=== PATIENT | female | born 1945 | race Caucasian/White ===

== ENCOUNTER 2019-06-20 19:38 | Emergency (ER) | payer MEDICARE, OTHER ==
[2019-06-20] MEDS ORDERED: Midazolam 1 MG/ML 2 ML SDV IVPUSH ONE (19:54)
[2019-06-20] MEDS ORDERED: fentaNYL 100 MCG/2 ML SDV IVPUSH ONE (19:54)
--- NOTE | 2019-06-20 19:54 | EDM.PDOC ---
ED HPI GENERAL MEDICAL PROBLEM - General Chief Complaint: Upper Extremity Injury/Pain Stated Complaint: [facility]ENT AMB Time Seen by Provider: 06/20/19 19:40 Source of Information: Reports: Patient, EMS History Limitations: Reports: No Limitations - History of Present Illness INITIAL COMMENTS - FREE TEXT/NARRATIVE: The patient presents by [facility] with intercept from [facility] for a left shoulder dislocation. The patient was going into the kitchen to get her son some dinner and a wheel on her walker broke and she fell along the counter and her left arm is stuck up above her head. She did not hit her head or hurt her neck. She has no headache, neck pain, chest pain, abdominal pain, nausea, vomiting, hip or leg pain. This has never happened to her before. Onset: Sudden Duration: Minutes: Location: Reports: Upper Extremity, Left (Shoulder dislocation) Quality: Reports: Sharp Severity: Severe Improves with: Reports: Immobilization Worsens with: Reports: Movement Context: Reports: Trauma (fall) Associated Symptoms: Reports: No Other Symptoms Treatments TRANSPORTATION AGENT: Reports: IV/IO, Other (see below) Other Treatments TRANSPORTATION AGENT: zofran, dialudid Left Shoulder Pain Score (Numeric/FACES): 10 - Related Data Allergies Allergy/AdvReac Type Severity Reaction Status Date / Time morphine Allergy Agitation Verified 06/20/19 19:45 Penicillins Allergy Hives Verified 06/20/19 19:45 soy Allergy Hives Verified 06/20/19 19:45 Yeast Allergy Hives Verified 06/20/19 19:45 chlorine. Allergy Hives Uncoded 06/20/19 19:45 Home Meds: Home Meds Acetaminophen with Codeine [Tylenol with Codeine #3 Tablet] 1 each PO Q6H PRN # 20 tablet 06/20/19 [Rx] Allopurinol [Zyloprim] 100 mg PO TID 06/20/19 [History] Cholecalciferol (Vitamin D3) [Vitamin D3] 5,000 unit PO DAILY 06/20/19 [History] Famotidine [Pepcid] 10 mg PO DAILY 06/20/19 [History] Fluconazole [Diflucan] 150 mg PO Q48H 06/20/19 [History] Hydroxychloroquine [Plaquenil] 200 mg PO BID 06/20/19 [History] Levothyroxine Sodium [Synthroid] 137 mcg PO ACBREAKFAST 06/20/19 [History] Losartan [Cozaar] 50 mg PO DAILY 06/20/19 [History] metFORMIN [Glucophage XR] 1,000 mg PO DAILY 06/20/19 [History] Past Medical History Cardiovascular History: Reports: Hypertension Musculoskeletal History: Reports: Gout Endocrine/Metabolic History: Reports: Hypothyroidism, Obesity/BMI 30+ - Past Surgical History GI Surgical History: Reports: Other (See Below) Other GI Surgeries/Procedures: splenectomy Social & Family History - Tobacco Use Smoking Status *Q: Never Smoker - Caffeine Use Caffeine Use: Reports: None - Recreational Drug Use Recreational Drug Use: No Review of Systems - Review of Systems Review Of Systems: See Below Constitutional: Reports: No Symptoms Eyes: Reports: No Symptoms Ears: Reports: No Symptoms Nose: Reports: No Symptoms Mouth/Throat: Reports: No Symptoms Respiratory: Reports: No Symptoms Cardiovascular: Reports: No Symptoms GI/Abdominal: Reports: No Symptoms Musculoskeletal: Reports: Shoulder Pain (Left) ED EXAM, GENERAL - Physical Exam Exam: See Below Exam Limited By: No Limitations General Appearance: Alert, No Apparent Distress Ears: Normal External Exam Nose: Normal Inspection Head: Atraumatic, Normocephalic Neck: Normal Inspection Respiratory/Chest: No Respiratory Distress, Lungs Clear, Normal Breath Sounds Cardiovascular: Regular Rate, Rhythm, No Edema, No Murmur GI/Abdominal: Soft, Non-Tender, No Organomegaly, No Mass Extremities: Other (Left arm is abducted and over her head. She has good sensation and pulses distally.) ED TRAUMA EXTREMITY PROCEDURES - Joint Reduction Left Shoulder Sedation: Conscious Sedation Pre-Procedure NV Status: Normal Post-Procedure NV Status: Normal Technique: Traction/Counter Traction Number of Attempts: 2 Post-Reduction Imaging: Completely Reduced, No Fracture Seen Joint Reduction Complications: No Course - Vital Signs Last Recorded V/S: Last Vital Signs Temp 98.7 F 06/20/19 19:40 Pulse 103 H 06/20/19 19:40 Resp 19 06/20/19 19:40 BP 146/63 H 06/20/19 19:40 Pulse Ox 91 L 06/20/19 19:40 - Orders/Labs/Meds Orders: Active Orders 24 hr Category Date Time Status Shoulder 1V Lt [CR] Stat Exams 06/20/19 20:29 Taken Shoulder Comp Lt [CR] Stat Exams 06/20/19 21:15 Ordered Meds: Medications Discontinued Medications Generic Name Dose Route Start Last Admin Trade Name Melania PRN Reason Stop Dose Admin Fentanyl 100 mcg 06/20/19 19:54 Sublimaze IVPUSH 06/20/19 19:55 ONETIME ONE Fentanyl Confirm 06/20/19 19:55 Sublimaze Administered 06/20/19 19:56 Dose 100 mcg .ROUTE .STK-MED ONE Midazolam HCl 2 mg 06/20/19 19:54 Versed 1 Mg/Ml IVPUSH 06/20/19 19:55 ONETIME ONE Midazolam HCl Confirm 06/20/19 19:55 Versed 1 Mg/Ml Administered 06/20/19 19:56 Dose 6 mg .ROUTE .STK-MED ONE Propofol 120 mg 06/20/19 20:37 Diprivan 20 Ml IVPUSH 06/20/19 20:38 ONETIME ONE - Re-Assessments/Exams Free Text/Narrative Re-Assessment/Exam: 06/20/19 20:04 I ordered an IV saline lock and I ordered versed and fentanyl. 06/20/19 21:19 The the patient was given a total of 3mgs of versed and 100mcg of fentanyl. The shoulder did move but x-ray showed it was still reduced. I then used 140mg of propofol and my [employer] MANAGER Karol was able to reduce her shoulder without difficulty. There were no complications. X-ray did confirm reduction. Departure - Departure Time of Disposition: 21:30 Disposition: Home, Self-Care 01 Condition: Good Clinical Impression: Inferior dislocation of left shoulder Qualifiers: Encounter type: initial encounter Qualified Code(s): S43.035A - Inferior dislocation of left humerus, initial encounter - Discharge Information *PRESCRIPTION DRUG MONITORING PROGRAM REVIEWED*: Not Applicable *COPY OF PRESCRIPTION DRUG MONITORING REPORT IN PATIENT [place]: Not Applicable Prescriptions: Acetaminophen with Codeine [Tylenol with Codeine #3 Tablet] 1 each PO Q6H PRN # 20 tablet PRN Reason: Pain Referrals: PCP,Not In Area [Primary Care Provider] - Clayton Hills MD [Physician] - 1 Week Forms: ED Department Discharge Additional Instructions: Ice your shoulder for 15 minutes 3 times per day for 2 days. Wear the sling and swathe for the next couple of days. Take it off a couple times per day and move your shoulder to avoid getting frozen shoulder. Take tylenol as needed for pain. If that does not help, try the tylenol 3. Please return if you are worse. Sepsis Event Note - Evaluation Sepsis Screening Result: No Definite Risk - Focused Exam Vital Signs: Vital Signs Temp Pulse Resp BP Pulse Ox 06/20/19 19:40 98.7 F 103 H 19 146/63 H 91 L Date Exam was Performed: 06/20/19 Time Exam was Performed: 21:18 - My Orders Last 24 Hours: My Active Orders 06/20/19 20:29 Shoulder 1V Lt [CR] Stat 06/20/19 21:15 Shoulder Comp Lt [CR] Stat - Assessment/Plan Last 24 Hours: My Active Orders 06/20/19 20:29 Shoulder 1V Lt [CR] Stat 06/20/19 21:15 Shoulder Comp Lt [CR] Stat
[2019-06-20] MEDS ORDERED: Midazolam 1 MG/ML 2 ML SDV ONE (19:55)
[2019-06-20] MEDS ORDERED: fentaNYL 100 MCG/2 ML SDV ONE (19:55)
[2019-06-20] MEDS ORDERED: Propofol 200 MG/20 ML SDV IVPUSH ONE (20:37)
--- NOTE | 2019-06-20 20:42 | CR ---
Left shoulder: Supine portable view of the left shoulder was obtained. Dislocation is noted within the anterior and inferior direction within the left shoulder. No other acute finding is seen. Impression: 1. Dislocated left shoulder as noted above. Diagnostic code #3 Study was dictated in MDT
--- NOTE | 2019-06-21 07:29 | CR ---
Left shoulder: Single AP view of the left shoulder was obtained and supine projection. Comparison: Prior shoulder study performed earlier on the same day (7:38 PM). Dislocated shoulder remains inferiorly and anteriorly. No additional acute finding is seen. Impression: 1. Persistent dislocation. Diagnostic code #3 Study was dictated in MDT
--- NOTE | 2019-06-21 07:29 | CR ---
Left shoulder: 2 views of the left shoulder were obtained. Comparison: Previous shoulder study performed earlier on the same day (8:21 PM). Glenohumeral alignment is normal on current study with previous dislocation having been reduced. Impression: 1. Reduction of previous dislocation. Diagnostic code #1 Study was dictated in MDT
== END 2019-06-20 21:48 | disposition home or self-care (01) ==
LOC: JD.ED 19:38
DX: S43.035A Inferior dislocation of left humerus, initial encounter (principal); I10 Essential (primary) hypertension; E03.9 Hypothyroidism, unspecified; M10.9 Gout, unspecified; E66.9 Obesity, unspecified; Z68.42 Body mass index [BMI] 45.0-49.9, adult; Z91.018 Allergy to other foods; Z88.5 Allergy status to narcotic agent; Z88.0 Allergy status to penicillin; Z88.8 Allergy status to other drugs, medicaments and biological substances; Z79.899 Other long term (current) drug therapy; W19.XXXA Unspecified fall, initial encounter
CPT/HCPCS: 23650; 23655; 73020-26-LT; 73020-LT; 73030-26-LT; 73030-LT; 99152; 99153; 99283; 99283-25

== ENCOUNTER 2019-11-16 16:42 | Emergency (ER) | payer MEDICARE, OTHER ==
--- NOTE | 2019-11-16 17:18 | EDM.PDOC ---
ED HPI GENERAL MEDICAL PROBLEM - General Chief Complaint: Respiratory Problem Stated Complaint: COVID + Time Seen by Provider: 11/16/19 17:15 Source of Information: Reports: Patient, RN Notes Reviewed - History of Present Illness INITIAL COMMENTS - FREE TEXT/NARRATIVE: 74 yr female has been brought in by private vehicle with C/O hemoptysis that started today. She has been ill for 8 to 9 days, tested for covid 8 days ago and found to be covid positive. She has been coughing, has had fever and chills. Not aware of being short of breath but arrives to our ED with sats in the upper 70's room air. No chest or abd pain at time of eval. Has not been vomiting. Weak, dizzy when standing or walking. Hx of Htn, RA., moderate obesity and hypothyroidism. Generalized Pain Score (Numeric/FACES): 6 - Related Data Allergies Allergy/AdvReac Type Severity Reaction Status Date / Time morphine Allergy Agitation Verified 11/16/19 17:02 Penicillins Allergy Hives Verified 11/16/19 17:02 soy Allergy Hives Verified 11/16/19 17:02 Yeast Allergy Hives Verified 11/16/19 17:02 chlorine. Allergy Hives Uncoded 11/16/19 17:02 Home Meds: Home Meds Allopurinol [Zyloprim] 100 mg PO TID PRN 06/20/19 [History] Cholecalciferol (Vitamin D3) [Vitamin D3] 5,000 unit PO DAILY 06/20/19 [History] Levothyroxine Sodium [Synthroid] 137 mcg PO ACBREAKFAST 06/20/19 [History] Losartan [Cozaar] 50 mg PO DAILY 06/20/19 [History] Ascorbic Acid [Vitamin C] 1,000 mg PO BID 11/16/19 [History] Aspirin [Aspirin EC] 81 mg PO DAILY 11/16/19 [History] Ondansetron [Zofran ODT] 4 mg PO Q6HR PRN 11/16/19 [History] Zinc. 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, low platelets Gastrointestinal History: Reports: GERD, PUD Genitourinary History: Reports: UTI, Recurrent Musculoskeletal History: Reports: Gout Endocrine/Metabolic History: Reports: Hypothyroidism, Obesity/BMI 30+ Oncologic (Cancer) History: Reports: Non-Hodgkin's Lymphoma - Past Surgical History GI Surgical History: Reports: Other (See Below) Other GI Surgeries/Procedures: splenectomy Social & Family History - Tobacco Use Smoking Status *Q: Never Smoker - Caffeine Use Caffeine Use: Reports: Soda - Recreational Drug Use Recreational Drug Use: No ED ROS GENERAL - Review of Systems Review Of Systems: See Below Constitutional: Reports: Fever, Chills HEENT: Reports: Rhinitis. Denies: Throat Pain Respiratory: Reports: Cough, Sputum, Hemoptysis. Denies: Shortness of Breath Cardiovascular: Denies: Chest Pain GI/Abdominal: Reports: Decreased Appetite. Denies: Abdominal Pain, Vomiting Musculoskeletal: Reports: Other (generalized achiness) Skin: Denies: Rash Neurological: Reports: Dizziness. Denies: Trouble Speaking ED EXAM, GENERAL - Physical Exam Exam: See Below General Appearance: Alert, Mild Distress Ears: Normal External Exam Head: Atraumatic Neck: Supple, Other (no JVD) Respiratory/Chest: Respiratory Distress (very tachypnic on arrival to ED) Cardiovascular: Regular Rate, Rhythm Extremities: Normal Inspection. No: Leg Pain, Increased Warmth, Redness Neurological: Alert, Oriented, No Motor/Sensory Deficits Skin Exam: Warm, Dry, Normal Color EKG INTERPRETATION EKG Date: 11/16/19 Rhythm: NSR [place]: Normal P-Wave: Present QRS: Normal ST-T: Normal Course - Vital Signs Last Recorded V/S: Last Vital Signs Temp 98.5 F 11/16/19 20:05 Pulse 92 11/16/19 20:05 Resp 33 H 11/16/19 20:05 BP 101/83 11/16/19 20:05 Pulse Ox 90 L 11/16/19 20:05 - Orders/Labs/Meds Orders: Active Orders 24 hr Category Date Time Status Chest 1V Frontal [CR] Stat Exams 11/16/19 17:19 Taken Peripheral IV Insertion Adult [OM.PC] Stat Oth 11/16/19 17:20 Ordered Labs: Laboratory Tests 11/16/19 11/16/19 11/16/19 Range/Units 18:00 18:00 18:00 WBC 11.87 H (3.98-10.04) K/mm3 RBC 4.78 (3.98-5.22) M/mm3 Hgb 15.1 (11.2-15.7) gm/dl Hct 46.5 H (34.1-44.9) % MCV 97.3 H (79.4-94.8) fl MCH 31.6 (25.6-32.2) pg MCHC 32.5 (32.2-35.5) g/dl RDW Std Deviation 51.2 H (36.4-46.3) fL Plt Count 429 H (182-369) K/mm3 MPV 9.6 (9.4-12.3) fl Neut % (Auto) 80.1 H (34.0-71.1) % Lymph % (Auto) 13.4 L (19.3-51.7) % [place] % (Auto) 5.0 (4.7-12.5) % Eos % (Auto) 0.6 L (0.7-5.8) Baso % (Auto) 0.3 (0.1-1.2) % Neut # (Auto) 9.52 H (1.56-6.13) K/mm3 Lymph # (Auto) 1.59 (1.18-3.74) K/mm3 [place] # (Auto) 0.59 H (0.24-0.36) K/mm3 Eos # (Auto) 0.07 (0.04-0.36) K/mm3 Baso # (Auto) 0.03 (0.01-0.08) K/mm3 Manual Slide Review Abnormal smear D-Dimer, Quantitative (0.19-0.50) mg/L Puncture Site ABG pH (7.35-7.45) ABG pCO2 (35.0-45.0) mmHg ABG pO2 (80.0-100.0) mmHg ABG HCO3 (22.0-26.0) meq/L ABG O2 Saturation (96.0-97.0) % ABG Base Excess (-2-2.0) A-a Gradient mmHg O2 Delivery Device Oxygen Flow Rate FiO2 (21.00-100.00) % Blood Gas Comments Sodium 137 (136-145) mEq/L Potassium 4.6 (3.5-5.1) mEq/L Chloride 99 (98-107) mEq/L Carbon Dioxide 27 (21-32) mEq/L Anion Gap 15.6 H (5-15) BUN 21 H (7-18) mg/dL Creatinine 0.9 (0.55-1.02) mg/dL Est Cr Clr Drug Dosing 45.36 mL/min Estimated GFR (MDRD) > 60 (>60) mL/min BUN/Creatinine Ratio 23.3 H (14-18) Glucose 121 H (83-115) mg/dL Calcium 9.2 (8.5-10.1) mg/dL Ferritin (8-252) ng/ml Total Bilirubin 0.4 (0.2-1.0) mg/dL AST 33 (15-37) U/L ALT 22 (14-59) U/L Alkaline Phosphatase 75 (46-116) U/L Lactate Dehydrogenase 410 H (81-234) U/L Troponin I < 0.017 (0.00-0.056) ng/mL C-Reactive Protein 19.1 H* (<1.0) mg/dL Total Protein 7.4 (6.4-8.2) g/dl Albumin 2.3 L (3.4-5.0) g/dl Globulin 5.1 gm/dL Albumin/Globulin Ratio 0.5 L (1-2) 11/16/19 11/16/19 11/16/19 Range/Units 18:00 18:00 18:00 WBC (3.98-10.04) K/mm3 RBC (3.98-5.22) M/mm3 Hgb (11.2-15.7) gm/dl Hct (34.1-44.9) % MCV (79.4-94.8) fl MCH (25.6-32.2) pg MCHC (32.2-35.5) g/dl RDW Std Deviation (36.4-46.3) fL Plt Count (182-369) K/mm3 MPV (9.4-12.3) fl Neut % (Auto) (34.0-71.1) % Lymph % (Auto) (19.3-51.7) % [place] % (Auto) (4.7-12.5) % Eos % (Auto) (0.7-5.8) Baso % (Auto) (0.1-1.2) % Neut # (Auto) (1.56-6.13) K/mm3 Lymph # (Auto) (1.18-3.74) K/mm3 [place] # (Auto) (0.24-0.36) K/mm3 Eos # (Auto) (0.04-0.36) K/mm3 Baso # (Auto) (0.01-0.08) K/mm3 Manual Slide Review D-Dimer, Quantitative 0.74 H (0.19-0.50) mg/L Puncture Site Rt radial ABG pH 7.49 H (7.35-7.45) ABG pCO2 33.2 L (35.0-45.0) mmHg ABG pO2 61.0 L (80.0-100.0) mmHg ABG HCO3 25.0 (22.0-26.0) meq/L ABG O2 Saturation 89.4 L (96.0-97.0) % ABG Base Excess 2.6 H (-2-2.0) A-a Gradient 183 mmHg O2 Delivery Device Nasal cannula Oxygen Flow Rate 5.0 FiO2 40.00 (21.00-100.00) % Blood Gas Comments Pos Sodium (136-145) mEq/L Potassium (3.5-5.1) mEq/L Chloride (98-107) mEq/L Carbon Dioxide (21-32) mEq/L Anion Gap (5-15) BUN (7-18) mg/dL Creatinine (0.55-1.02) mg/dL Est Cr Clr Drug Dosing mL/min Estimated GFR (MDRD) (>60) mL/min BUN/Creatinine Ratio (14-18) Glucose (83-115) mg/dL Calcium (8.5-10.1) mg/dL Ferritin 1435 H (8-252) ng/ml Total Bilirubin (0.2-1.0) mg/dL AST (15-37) U/L ALT (14-59) U/L Alkaline Phosphatase (46-116) U/L Lactate Dehydrogenase (81-234) U/L Troponin I (0.00-0.056) ng/mL C-Reactive Protein (<1.0) mg/dL Total Protein (6.4-8.2) g/dl Albumin (3.4-5.0) g/dl Globulin gm/dL Albumin/Globulin Ratio (1-2) Meds: Medications Discontinued Medications Generic Name Dose Route Start Last Admin Trade Name Melania PRN Reason Stop Dose Admin Sodium Chloride 10 ml 11/16/19 17:19 11/16/19 19:33 Saline Flush FLUSH 10 ml ASDIRECTED PRN Administration Keep Vein Open - Re-Assessments/Exams Free Text/Narrative Re-Assessment/Exam: 11/16/19 19:10. Pt has covid pneumonia with hypoxia, labs as resulted. She has maintained sats with 5 liters NC in the 87 to to 90 range. ABG's 5 L NC show ph 7.49, PO2 61, PCo2, 33.2. CXR shows moderately severe bilat infiltrates. We are on ICU diversion. She needs higher level of care. She has risk factors of age, HX Htn, RA and is moderately obese. Dr Snider Hospitalist Cruz Flores accepts patient for direct admission after consultation with Dr Webster, critical care as well. Due to wait time for ground ambulance involved with multiple transfers we are going to send her by [facility]. Medical necessity as above. Departure - Departure Time of Disposition: 18:40 Disposition: Home, Self-Care 01 Condition: Serious Clinical Impression: Pneumonia due to COVID-19 virus, Hypoxia - Discharge Information Referrals: PCP,None [Primary Care Provider] - Forms: ED Department Discharge Sepsis Event Note (ED) - Evaluation Sepsis Screening Result: Possible Sepsis Risk - Focused Exam Vital Signs: Vital Signs Temp Pulse Resp BP Pulse Ox 11/16/19 20:05 98.5 F 92 33 H 101/83 90 L 11/16/19 16:57 99.9 F 87 42 H 150/93 H 76 L - My Orders Last 24 Hours: My Active Orders 11/16/19 17:19 Chest 1V Frontal [CR] Stat 11/16/19 17:20 Peripheral IV Insertion Adult [OM.PC] Stat - Assessment/Plan Last 24 Hours: My Active Orders 11/16/19 17:19 Chest 1V Frontal [CR] Stat 11/16/19 17:20 Peripheral IV Insertion Adult [OM.PC] Stat
[2019-11-16] MEDS ORDERED: Sodium Chloride 0.9% 10 ML Syringe FLUSH PRN (17:19)
--- NOTE | 2019-11-17 06:47 | CR ---
Chest: Portable view of the chest was obtained. Comparison: No prior chest imaging. Heart size is felt to be slightly enlarged. Tortuous thoracic aorta is noted. Diffuse increased lung markings on both sides of the chest most likely representing bronchitis and interstitial pneumonia. Bony structures are grossly intact. Impression: 1. Probable diffuse bronchitis and interstitial pneumonia. Differential includes both bacterial and viral etiologies. 2. Heart is slightly enlarged. Diagnostic code #5 Study was dictated in MDT
== END 2019-11-16 19:55 | disposition home or self-care (01) ==
LOC: JD.ED 16:42
DX: J18.9 Pneumonia, unspecified organism (principal); R09.02 Hypoxemia; U07.1 COVID-19; E66.9 Obesity, unspecified; I10 Essential (primary) hypertension; Z88.0 Allergy status to penicillin; Z88.6 Allergy status to analgesic agent; Z88.5 Allergy status to narcotic agent; Z91.018 Allergy to other foods; Z79.82 Long term (current) use of aspirin; Z68.41 Body mass index [BMI] 40.0-44.9, adult; Z79.899 Other long term (current) drug therapy
CPT/HCPCS: 36415; 36600; 71045; 71045-26; 80053; 82728; 82803; 83615; 84484; 85025; 85379; 86140; 93005; 93010; 94762; 99283; 99284-25

== ENCOUNTER 2023-05-10 18:07 | Emergency (ER) | payer MEDICARE, OTHER ==
[2023-05-10] MEDS: Acetaminophen 325 MG Tab PO ONE (21:15)
== END 2023-05-10 22:40 | disposition home or self-care (01) ==
LOC: JD.ED 18:07
DX: M70.61 Trochanteric bursitis, right hip (principal); M76.31 Iliotibial band syndrome, right leg; I10 Essential (primary) hypertension; E03.9 Hypothyroidism, unspecified; E66.9 Obesity, unspecified; Z88.5 Allergy status to narcotic agent; Z88.0 Allergy status to penicillin; Z91.018 Allergy to other foods; Z88.8 Allergy status to other drugs, medicaments and biological substances; Z86.16 Personal history of COVID-19; Z68.41 Body mass index [BMI] 40.0-44.9, adult; Z79.82 Long term (current) use of aspirin; Z79.899 Other long term (current) drug therapy
CPT/HCPCS: 93971; 99283; A9270